=== PATIENT | female | born 1995 | race Caucasian/White ===

== ENCOUNTER → 2016-07-12 22:16 | Observation (INO) ==
[2016-07-12 21:03] LABS: Bilirubin,Urine Negative (Negative); Blood,Urine Negative (Negative); Color,Urine Yellow (Yellow); Glucose,Urine (UA) Normal (Normal); Ketones,Urine Negative (Negative); Leukocyte Esterase,Urine Moderate (Negative); Nitrite,Urine Negative (Negative); PH,Urine 6.5 pH Units (5.0-8.0); Protein,Urine Negative (Neg-Trace); Specific Gravity,Urine 1.028 (1.010-1.025); Urobilinogen,Urine Normal (Normal)
[2016-07-12 21:06] LABS: Bacteria,Urine Moderate per hpf (None-Few); Hyaline Casts,Urine None Seen per lpf (None-Few); RBC,Urine 0-3 per hpf (0-3); Squamous Epithelial Cell,Urine Many per lpf (None-Few); WBC,Urine 15-30 per hpf (0-3)
[2016-07-12 21:08] LABS: Clarity,Urine Cloudy (Clear)
--- NOTE | 2016-07-12 22:06 | Discharge Summary ---
Date of Encounter: 07/12/16 Time of Encounter: 22:07 - Discharge Diagnosis (1) 27 weeks gestation of Priority: Primary Status: Acute Comments: False labor Vaginosis Panel collected and sent to lab UA and culture sent to lab (2) NST (non-stress test) reactive Priority: Secondary Status: Acute Comments: baseline 135 bpm - Discharge Medications Home Medications: No Known Home Drugs 11/22/14 [History] Allergies/Adverse Reactions: Allergies codeine Allergy (Verified 07/12/16 20:06) Vomiting Data Procedures and tests throughout hospitalization: Laboratory Tests 07/12/16 20:17 Urine Color Yellow Urine Clarity Cloudy A Urine pH 6.5 Ur Specific [place] 1.028 H Urine Protein Negative Urine Glucose (UA) Normal Urine Ketones Negative Urine Blood Negative Urine Nitrite Negative Urine Bilirubin Negative Urine Urobilinogen Normal Ur Leukocyte Esterase Moderate H Urine Microscopic RBC 0-3 Urine Microscopic WBC 15-30 H Ur Squamous Epith Cells Many H Urine Bacteria Moderate H Hyaline Casts None Seen Ur Culture Indicated? YES A Labs on day of discharge: Labs from last 24 hours 07/12/16 20:17 Urine Color Yellow Urine Clarity Cloudy A Urine pH 6.5 Ur Specific [place] 1.028 H Urine Protein Negative Urine Glucose (UA) Normal Urine Ketones Negative Urine Blood Negative Urine Nitrite Negative Urine Bilirubin Negative Urine Urobilinogen Normal Ur Leukocyte Esterase Moderate H Urine Microscopic RBC 0-3 Urine Microscopic WBC 15-30 H Ur Squamous Epith Cells Many H Urine Bacteria Moderate H Hyaline Casts None Seen Ur Culture Indicated? 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 Patient normally sees Dr. Jones for ob care. Patient reports +FM, denies LOF or VB. Patient had a recent delivery prior to this . Discussed comfort interventions and to follow up with Dr. Jones. Will call patient with vaginosis panel results. Patient given education on labor. Time Attestation: Total time spent providing and/or coordinating discharge services: Time Spent: Less than 30 minutes Exam - Constitutional General appearance IM: A&O X 3, pleasant, answers questions appropriately - Respiratory Respiratory exam: Present: CTAB - Cardiovascular Cardiovascular exam IM: Present: RRR, +S1, +S2 - GI/Abdominal GI/Abdominal exam IM: normal bowel sounds - Extremities Exam Extremities exam IM: Present: full ROM, normal capillary refill, normal inspection - Neurological Exam Neurological exam: alert, oriented X3, reflexes normal - Other Additional findings: FHR 135 bpm moderate variability +15x15 accels no decels noted. no contractions noted. Speculum exam: No blood noted, moderate amount of thin white discharge. Vaginosis panel collected and sent to lab. SVE closed/thick/-3 - VTE Reasons for not Prescribing Prophylaxis: Treatment not Indicated - Low risk for VTE
== END | disposition home or self-care (01) ==
LOC: 1NENULAB

== ENCOUNTER → 2016-08-03 21:10 | Observation (INO) ==
[2016-08-03 20:17] LABS: Bilirubin,Urine Negative (Negative); Blood,Urine Negative (Negative); Clarity,Urine Cloudy (Clear); Color,Urine Yellow (Yellow); Glucose,Urine (UA) Normal (Normal); Ketones,Urine Negative (Negative); Leukocyte Esterase,Urine Trace (Negative); Nitrite,Urine Negative (Negative); Protein,Urine Negative (Neg-Trace); Specific Gravity,Urine 1.008 (1.010-1.025); Urobilinogen,Urine Normal (Normal)
[2016-08-03 20:20] LABS: Bacteria,Urine Few per hpf (None-Few); Hyaline Casts,Urine None Seen per lpf (None-Few); RBC,Urine 0-3 per hpf (0-3); Squamous Epithelial Cell,Urine Many per lpf (None-Few)
--- NOTE | 2016-08-05 13:40 | OB Labor Progress Note ---
Date of Encounter: 08/03/16 Time of Encounter: 13:38 Labor Progress Note - Plan Plan: Patient presented to L&D for labor eval, she was evaluated and found not to be in labor, ok for discharge
== END | disposition home or self-care (01) ==
LOC: 1NENULAB
PROVIDERS: ADMIT Student in an Organized Health Care Education/Training Program; ATTEND Student in an Organized Health Care Education/Training Program

== ENCOUNTER → 2016-08-15 10:41 | Observation (INO) ==
[2016-08-15 10:06] LABS: Bilirubin,Urine Negative (Negative); Blood,Urine Negative (Negative); Clarity,Urine Cloudy (Clear); Color,Urine Yellow (Yellow); Glucose,Urine (UA) Normal (Normal); Ketones,Urine 15 mg/dL (Negative); Leukocyte Esterase,Urine Trace (Negative); Nitrite,Urine Negative (Negative); Protein,Urine 30 mg/dL (Neg-Trace); Specific Gravity,Urine > 1.030 (1.010-1.025); Urobilinogen,Urine Normal (Normal)
[2016-08-15 10:12] LABS: Amphetamine Screen,Urine Negative ng/mL (Cutoff=1000); Barbiturate Screen,Urine Negative ng/mL (Cutoff=200); Benzodiazepines Screen,Urine Negative ng/mL (Cutoff=200); Cannabinoid Screen,Urine Negative ng/mL (Cutoff = 50); Cocaine Screen,Urine Negative ng/mL (Cutoff= 300); Opiate Screen,Urine Negative ng/mL (Cutoff=300); Phencyclidine Screen,Urine Negative ng/mL (Cutoff=25)
[2016-08-15 10:21] LABS: Bacteria,Urine Few per hpf (None-Few); RBC,Urine 0-3 per hpf (0-3); Squamous Epithelial Cell,Urine Few per lpf (None-Few)
--- NOTE | 2016-08-15 10:23 | Discharge Summary ---
Date of Encounter: 08/15/16 Time of Encounter: 10:23 - Discharge Diagnosis (1) 31 weeks gestation of Priority: Primary Status: Acute Comments: admitted for observation (2) Fatigue during Priority: Secondary Status: Acute Comments: Patient encouraged to get adequate sleep take vitamins follow up with primary OB doctor Qualifiers: Trimester: third trimester Qualified Code(s): O26.813 - related exhaustion and fatigue, third trimester (3) Non-reactive NST (non-stress test) Priority: Secondary Status: Acute Comments: Baseline 125 bpm moderate variability+15x15 accels no decels noted. - Discharge Medications Home Medications: Ferrous Sulfate [Iron] 1 tab PO BID 08/15/16 [History] Vit Calc,Iron,Folic [ Vitamins] 1 tab PO DAILY 08/15/16 [ History] Allergies/Adverse Reactions: Allergies codeine Allergy (Verified 08/15/16 09:31) Vomiting Data Procedures and tests throughout hospitalization: Laboratory Tests 08/15/16 08/15/16 09:54 09:54 Urine Color Yellow Urine Clarity Cloudy A Urine pH 7.0 Ur Specific [place] > 1.030 H Urine Protein 30 H Urine Glucose (UA) Normal Urine Ketones 15 H Urine Blood Negative Urine Nitrite Negative Urine Bilirubin Negative Urine Urobilinogen Normal Ur Leukocyte Esterase Trace H Urine Opiates Screen Negative Ur Barbiturates Screen Negative Ur Phencyclidine Scrn Negative Ur Amphetamines Screen Negative U Benzodiazepines Scrn Negative Urine Cocaine Screen Negative U Marijuana (THC) Screen Negative Labs on day of discharge: Labs from last 24 hours 08/15/16 08/15/16 09:54 09:54 Urine Color Yellow Urine Clarity Cloudy A Urine pH 7.0 Ur Specific [place] > 1.030 H Urine Protein 30 H Urine Glucose (UA) Normal Urine Ketones 15 H Urine Blood Negative Urine Nitrite Negative Urine Bilirubin Negative Urine Urobilinogen Normal Ur Leukocyte Esterase Trace H Urine Microscopic WBC Pending Ur Culture Indicated? Pending Urine Opiates Screen Negative Ur Barbiturates Screen Negative Ur Phencyclidine Scrn Negative Ur Amphetamines Screen Negative U Benzodiazepines Scrn Negative Urine Cocaine Screen Negative U Marijuana (THC) Screen Negative Date of admission: 08/15/16 09:12 Primary care physician: PCP NO Discharging clinician: Yamilet Martin Anticipated date of discharge: 08/15/16 - Patient Status Disposition: Home, Self-Care Condition: Good Functional capacity at discharge: independent ambulation - Discharge Instructions Follow Up With: UNA,PCP [Primary Care Provider] - Moises Madrigal MD [Non-Partnered Physician] - - Diet and Activity Activity: increase activity as tolerated Diet: regular diet 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 Patient states she feels tired all the time. Patient had intercourse last night and is currently being treated for BV. Patient denies contractions, LOF or VB and reports +FM. Patient also told nurse that she had chest pain but denies chest pain at this time and declines going to ER for evaluation. Time Attestation: Total time spent providing and/or coordinating discharge services: Time Spent: Less than 30 minutes Exam - Constitutional General appearance IM: A&O X 3, pleasant, answers questions appropriately - Respiratory Respiratory exam: Present: CTAB - Cardiovascular Cardiovascular exam IM: Present: RRR, +S1, +S2 - GI/Abdominal GI/Abdominal exam IM: normal bowel sounds - Extremities Exam Extremities exam IM: Present: full ROM, normal capillary refill, normal inspection - Neurological Exam Neurological exam: altered, oriented X3, reflexes normal - Other Additional findings: FHR 125 bpm moderate variability + 15x15 accels no decels noted. No contractions. Vital signs WNL. SVE: Close/thick and ballotable. - VTE Reasons for not Prescribing Prophylaxis: Medical contraindication
== END | disposition home or self-care (01) ==
LOC: 1NENULAB

== ENCOUNTER → 2016-09-08 21:39 | Observation (INO) ==
[2016-09-08 21:08] LABS: Bilirubin,Urine Negative (Negative); Blood,Urine Negative (Negative); Clarity,Urine Turbid (Clear); Color,Urine Yellow (Yellow); Glucose,Urine (UA) Normal (Normal); Ketones,Urine Negative (Negative); Leukocyte Esterase,Urine Large (Negative); Nitrite,Urine Negative (Negative); Protein,Urine Negative (Neg-Trace); Specific Gravity,Urine 1.021 (1.010-1.025); Urobilinogen,Urine Normal (Normal)
[2016-09-08 21:10] LABS: Bacteria,Urine Moderate per hpf (None-Few); Hyaline Casts,Urine None Seen per lpf (None-Few); RBC,Urine 0-3 per hpf (0-3); Squamous Epithelial Cell,Urine Many per lpf (None-Few); WBC,Urine 15-30 per hpf (0-3)
--- NOTE | 2016-09-12 23:19 | Discharge Summary ---
Date of Encounter: 09/08/16 Time of Encounter: 21:00 - Discharge Diagnosis (1) 35 weeks gestation of Priority: Primary Status: Chronic (2) premature rupture of membranes (PPROM) with unknown onset of labor Priority: Secondary Status: Ruled-out - Discharge Medications Home Medications: metroNIDAZOLE [Metronidazole] 500 mg PO BID #14 tablet 08/09/16 [Rx] Ferrous Sulfate [Iron] 1 tab PO BID 08/15/16 [History] Vit Calc,Iron,Folic [ Vitamins] 1 tab PO DAILY 08/15/16 [ History] Allergies/Adverse Reactions: Allergies codeine Allergy (Verified 08/15/16 09:31) Vomiting Data Procedures and tests throughout hospitalization: Laboratory Tests 09/08/16 20:50 Urine Color Yellow Urine Clarity Turbid A Urine pH 7.0 Ur Specific [place] 1.021 Urine Protein Negative Urine Glucose (UA) Normal Urine Ketones Negative Urine Blood Negative Urine Nitrite Negative Urine Bilirubin Negative Urine Urobilinogen Normal Ur Leukocyte Esterase Large H Urine Microscopic RBC 0-3 Urine Microscopic WBC 15-30 H Ur Squamous Epith Cells Many H Urine Bacteria Moderate H Hyaline Casts None Seen Ur Culture Indicated? 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
== END | disposition home or self-care (01) ==
LOC: 1NENULAB
PROVIDERS: ADMIT Obstetrics & Gynecology; ATTEND Obstetrics & Gynecology

== ENCOUNTER 2016-09-28 17:13 | Observation (INO) ==
[2016-09-28 18:08] LABS: Bilirubin,Urine Negative (Negative); Blood,Urine Negative (Negative); Clarity,Urine Cloudy (Clear); Color,Urine Yellow (Yellow); Glucose,Urine (UA) Normal (Normal); Ketones,Urine Negative (Negative); Leukocyte Esterase,Urine Moderate (Negative); Nitrite,Urine Negative (Negative); Protein,Urine Trace mg/dL (Neg-Trace); Specific Gravity,Urine 1.021 (1.010-1.025); Urobilinogen,Urine Normal (Normal)
[2016-09-28 18:17] LABS: Bacteria,Urine Moderate per hpf (None-Few); RBC,Urine 0-3 per hpf (0-3); Squamous Epithelial Cell,Urine Many per lpf (None-Few)
--- NOTE | 2016-09-30 13:20 | Discharge Summary ---
Date of Encounter: 09/28/16 Time of Encounter: 19:00 - Discharge Diagnosis (1) 38 weeks gestation of Priority: Secondary Status: Acute (2) False labor after 37 completed weeks of gestation Priority: Primary Status: Resolved - Discharge Medications Home Medications: Ferrous Sulfate [Iron] 1 tab PO BID 08/15/16 [History] Allergies/Adverse Reactions: Allergies codeine Allergy (Verified 08/15/16 09:31) Vomiting Data Procedures and tests throughout hospitalization: Laboratory Tests 09/28/16 17:48 Urine Color Yellow Urine Clarity Cloudy A Urine pH 7.0 Ur Specific [place] 1.021 Urine Protein Trace Urine Glucose (UA) Normal Urine Ketones Negative Urine Blood Negative Urine Nitrite Negative Urine Bilirubin Negative Urine Urobilinogen Normal Ur Leukocyte Esterase Moderate H Urine Microscopic RBC 0-3 Urine Microscopic WBC 5-15 H Ur Squamous Epith Cells Many H Urine Bacteria Moderate H Ur Culture Indicated? YES A Date of admission: 09/28/16 17:13 Primary care physician: PCP NO - Patient Status Disposition: Home, Self-Care Condition: Good Functional capacity at discharge: independent ambulation Overall status at discharge: patient is progressing back to baseline - Discharge Instructions Follow Up With: NO,PCP [Primary Care Provider] - Additional Instructions: LABOR AND DELIVERY DISCHARGE INSTRUCTIONS Signs and Symptoms to be Reported to your Doctor Immediately: * Sudden gush, continuous or intermittent lead of fluid from vagina (note the time of gush and color of fluid) * Onset of bright red vaginal bleeding with or without pain (if you had a vaginal exam during this visit you may notice some dark red spotting. This is normal.) * Lower abdominal cramping or backache that is premenstrual-like feeling. * More than 6 contractions in one hour. * Burning during urination, having to urinate more frequently or pain in your mid-back. * A change in the baby's activity. This could be an increase or decrease in activity. * Severe headache which does not go away with tylenol. * Sudden swelling in the face, hands, arms and/or legs. * Upper abdominal pain - sometimes associated with heartburn or nausea and is not relieved by Maalox, Mylanta or Tums. * Dizziness or blurred vision or visual disturbances (seeing stars/lights). * Kick Counts One hour after a meal, lay down on one side in a quiet place. Count the number of júnior the baby moves during an hour. If less than 6 movements, notify your physician. Diet: *Force fluids - 8-10 tall glasses of fluid per day. May include popsicles and jello. 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
== END 2016-09-28 19:33 | disposition home or self-care (01) ==
LOC: 1NENULAB
PROVIDERS: ADMIT Obstetrics & Gynecology; ATTEND Obstetrics & Gynecology

== ENCOUNTER → 2016-09-30 22:30 | Observation (INO) ==
--- NOTE | 2016-09-30 22:56 | OB/GYN Progress Note ---
Date of Encounter: 09/30/16 Time of Encounter: 22:51 - Assessment and Plan (1) 38 weeks gestation of Current Visit: Yes Status: Acute (2) False labor after 37 weeks of gestation without delivery Current Visit: Yes Status: Acute Repeat cervical exam shows no change. Pt discharged to home with labor precautions, when to return triage or call provider. Pt verbalizes understanding. (3) NST (non-stress test) reactive Current Visit: Yes Status: Acute Baseline 125 Subjective - Subjective Interval history: 38 weeks presents to triage with complaints of hip pain and occasional contractions. Reports good movement, denies vaginal bleeding or leaking of fluid. Pt states she spent most of the day walking around and holding her 18 month hold and "thinks I over did it". complains of intense hip pain on arrival. Pt. states hip pain has decreased since being here. Pt states uncomplicated course. Sees Dr. Ramirez for care. Antepartum ROS: movement normal, contractions, no loss of fluid, no vaginal bleeding Objective - Vital Signs Vital Signs: Intake and Output 09/30/16 09/30/16 09/30/16 07:59 15:59 23:59 Other: Weight 68 kg Patient Weight 09/30/16 23:59 Weight 68 kg - Exam FHR: auscultation normal FHR comments: Baseline 125 Abdomen: Present: normal appearance Cervical dilation: 1cm per RN
== END | disposition home or self-care (01) ==
LOC: 1NENULAB
PROVIDERS: ADMIT Student in an Organized Health Care Education/Training Program; ATTEND Student in an Organized Health Care Education/Training Program